=== PATIENT | female | born 1985 | race Caucasian/White ===

== ENCOUNTER 2017-08-05 03:42 | Emergency (ER) | payer SELFPAY ==
[2017-08-05 03:42] VITALS: BMI 28.0
[2017-08-05 04:41] LABS: BASO % 0.7 % (0.0-2.0); EOS # 0.1 K/uL (0.0-0.7); EOS % 1.8 % (0.0-4.0); LYMPH # 2.6 K/uL (1.0-4.3); LYMPH % 42.7 % (20.0-40.0); MEAN CELL VOLUME 91.9 fL (81.0-99.0); MEAN CORPUSCULAR HEMOGLOBIN 31.3 pg (27.0-31.0); MEAN CORPUSCULAR HGB CONC 34.1 g/dL (33.0-37.0); MEAN PLATELET VOLUME 7.4 fL (7.2-11.7); MONO # 0.5 K/uL (0.0-0.8); MONO % 8.4 % (0.0-10.0); NEUT # 2.8 K/uL (1.8-7.0); NEUT % 46.4 % (50.0-75.0); NRBC % 0.3 % (0.0-2.0); RBC 4.47 Mil/uL (3.80-5.20); RED CELL DISTRIBUTION WIDTH 13.1 % (11.5-14.5); WHITE BLOOD COUNT 6.1 K/uL (4.8-10.8)
[2017-08-05 04:46] LABS: HCG,QUALITATIVE URINE NEGATIVE (NEGATIVE)
[2017-08-05 04:47] LABS: SQUAMOUS EPITHIAL 11 /hpf (0-5); URINE BILIRUBIN NEGATIVE (NEGATIVE); URINE BLOOD NEGATIVE (NEGATIVE); URINE CLARITY Hazy (Clear); URINE COLOR Yellow (YELLOW); URINE GLUCOSE (UA) NORMAL (Normal); URINE HYALINE CAST 0-2 /lpf (0-2); URINE LEUKOCYTE ESTERASE 1+ Leu/uL (Negative); URINE PROTEIN NEGATIVE (NEGATIVE)
[2017-08-05 04:50] LABS: ALB/GLOB RATIO 1.4 (1.0-2.1); ALBUMIN 4.2 g/dL (3.5-5.0); ALT/SGPT 20 U/L (9-52); AST/SGOT 15 U/L (14-36); BLOOD UREA NITROGEN 12 mg/dL (7-17); GFR AFRICAN-AMERICAN > 60; GFR NON-AFRICAN AMERICAN > 60; LIPASE 51 U/L (23-300)
--- NOTE | 2017-08-05 06:20 | C.PDOC ---
History Of Present Illness 31 y/o female presents to the ED complaining of right rib pain since last night. States the pain is also radiating to her right upper back. Pain worsens with deep inspiration. Denies any fever, chills, abdominal pain, SOB, palpitations, or trauma. Time Seen by Provider: 08/05/17 04:12 Chief Complaint (Nursing): Abdominal Pain History Per: Patient History/Exam Limitations: no limitations Onset/Duration Of Symptoms: Hrs Current Symptoms Are (Timing): Still Present Past Medical History Reviewed: Historical Data, Nursing Documentation, Vital Signs Vital Signs: Last Vital Signs Temp 98.4 F 08/05/17 06:27 Pulse 68 08/05/17 06:27 Resp 16 08/05/17 06:27 BP 125/88 08/05/17 06:27 Pulse Ox 96 08/05/17 06:35 - Medical History PMH: Asthma, Gall Bladder Disease - [facility] Procedures APPLICATION OF SPLINT (04/11/14) Family History: States: Unknown Family Hx - Social History Hx Tobacco Use: Yes Hx Alcohol Use: No Hx Substance Use: No - Immunization History Hx Tetanus Toxoid Vaccination: No Hx Influenza Vaccination: Yes Hx Pneumococcal Vaccination: No Review Of Systems Constitutional: Negative for: Fever, Chills Cardiovascular: Positive for: Other (Right rib pain). Negative for: Palpitations Respiratory: Negative for: Shortness of Breath Gastrointestinal: Negative for: Abdominal Pain Musculoskeletal: Positive for: Back Pain Physical Exam - Physical Exam Appears: Non-toxic, No Acute Distress Skin: Normal Color, Warm, Dry Head: Atraumatic, Normacephalic Eye(s): bilateral: Normal Inspection, PERRL, EOMI Oral Mucosa: Moist Chest: No Deformity, Tenderness (to the right intercostal area), No Ecchymosis Cardiovascular: Rhythm Regular, No Murmur Respiratory: Normal Breath Sounds, No Accessory Muscle Use, No Rales, No Rhonchi , No Wheezing Gastrointestinal/Abdominal: Soft, No Tenderness (to right upper quadrant), No Guarding, No Rebound Back: No CVA Tenderness, Other (Tenderness to right supscapular area) Extremity: Bilateral: Atraumatic, Normal Color And Temperature, Normal ROM Pulses: Left Dorsalis Pedis: Normal, Right Dorsalis Pedis: Normal Neurological/Psych: Oriented x3, Normal Speech, Normal Motor, Normal Sensation, Other (No focal deficits) ED Course And Treatment - Laboratory Results Result Diagrams: 08/05/17 04:35 08/05/17 04:35 O2 Sat by Pulse Oximetry: 96 (RA) Pulse Ox Interpretation: Normal - Radiology CXR: Interpreted by Me CXR Interpretation: Yes: No Acute Disease. No: Infiltrates, Fracture Progress Note: Labs and CXR ordered. Patient given Toradol IM. Informed patient of negative CXR result. Labs reviewed, showing no clinically significant abnormalities. On reevaluation, patient is resting comfortably and reports improvement in pain. Patient is table for discharge home. Return precautions discussed Disposition Counseled Patient/Family Regarding: Diagnosis, Need For Followup, Rx Given - Disposition Disposition: HOME/ ROUTINE Disposition Time: :19 Condition: STABLE Additional Instructions: Take meds as directed Follw up with PMD Return to ER if worse Prescriptions: Cyclobenzaprine [Cyclobenzaprine HCl] 10 mg PO HS #7 tab Ibuprofen [Motrin] 600 mg PO Q6H #20 tab Instructions: Costochondritis (DC) Forms: [employer] ([place]ian) - POA Present On Arrival: None - Clinical Impression Clinical Impression: Costochondritis - PA / [employer] / Resident Statement MD/DO has reviewed & agrees with the documentation as recorded. - Scribe Statement The provider has reviewed the documentation as recorded by the Scribe (Leigh Hoang) All medical record entries made by the Scribe were at my direction and personally dictated by me. I have reviewed the chart and agree that the record accurately reflects my personal performance of the history, physical exam, medical decision making, and the department course for this patient. I have also personally directed, reviewed, and agree with the discharge instructions and disposition.
[2017-08-05 06:29] VITALS: BP 125/88; PULSE 68; RESP 16; TEMP 98.4
[2017-08-05 06:31] VITALS: O2SAT 96
--- NOTE | 2017-08-05 08:31 | RAD ---
HISTORY: pain, right chest pain COMPARISON: 09/06/2013 TECHNIQUE: Chest PA and lateral FINDINGS: LUNGS: No active pulmonary disease. PLEURA: No significant pleural effusion identified. No pneumothorax apparent. CARDIOVASCULAR: Normal. OSSEOUS STRUCTURES: No significant abnormalities. VISUALIZED UPPER ABDOMEN: Normal. OTHER FINDINGS: None. IMPRESSION: No active disease.
== END 2017-08-05 06:35 | disposition home or self-care (01) ==
LOC: C.ER 03:42
DX: M94.0 Chondrocostal junction syndrome [Tietze] (principal); Z72.0 Tobacco use
CPT/HCPCS: 71046; 80053; 81001; 83690; 84703; 85025; 96374; 99284; J1885

== ENCOUNTER 2017-10-05 05:50 | Emergency (ER) | payer SELFPAY ==
[2017-10-05 05:51] VITALS: BMI 28.0
[2017-10-05 06:00] VITALS: RESP 16; TEMP 98.3; O2SAT 97
[2017-10-05] MEDS ORDERED: Tetanus/Diphtheria Toxoids 0.5 ml Syringe IM ONE ×2 (06:06→06:20)
--- NOTE | 2017-10-05 06:27 | C.PDOC ---
History Of Present Illness 31 year old female patient presents to the ER with c/o laceration on right hand. Patient states she cut her hand from a broken glass. Patient notes her tetanus shot is not UTD. Patient denies weakness/numbness. Time Seen by Provider: 10/05/17 06:02 Chief Complaint (Nursing): Abnormal Skin Integrity History Per: Patient History/Exam Limitations: no limitations Onset/Duration Of Symptoms: Hrs Current Symptoms Are (Timing): Still Present Location Of Injury: Right: Hand Past Medical History Reviewed: Historical Data, Nursing Documentation, Vital Signs Vital Signs: Last Vital Signs Temp 98.3 F 10/05/17 05:55 Pulse 67 10/05/17 07:12 Resp 16 10/05/17 07:12 BP 123/82 10/05/17 07:12 Pulse Ox 97 10/05/17 07:12 - Medical History PMH: Asthma, Gall Bladder Disease - [facility] Procedures APPLICATION OF SPLINT (04/11/14) Family History: States: Unknown Family Hx - Social History Hx Tobacco Use: Yes Hx Alcohol Use: No Hx Substance Use: No - Immunization History Hx Tetanus Toxoid Vaccination: No Hx Influenza Vaccination: Yes Hx Pneumococcal Vaccination: No Review Of Systems Except As Marked, All Systems Reviewed And Found Negative. Musculoskeletal: Positive for: Other (laceration on right hand) Neurological: Negative for: Weakness, Numbness Physical Exam - Physical Exam Appears: Well, Non-toxic, No Acute Distress Skin: Normal Color, Warm, Dry Head: Atraumatic Eye(s): bilateral: Normal Inspection Cardiovascular: Rhythm Regular Respiratory: Other (speaking in full sentences) Extremity: Normal ROM, Capillary Refill (< 2 sec), No Deformity, Other (3 cm laceration on palmar aspect of right hand from the hypothenar extending to IP jts 4th and 5th fingers; 1.5 cm very superficial laceration to lateral aspect of right thumb. no tendon injury. ) Extremity: Bilateral: Normal Color And Temperature, Normal ROM Pulses: Left Radial: Normal, Right Radial: Normal Neurological/Psych: Oriented x3, Normal Speech Gait: Steady ED Course And Treatment O2 Sat by Pulse Oximetry: 97 (RA) Pulse Ox Interpretation: Normal Progress Note: Impression: 3cm laceration on palmar aspect of right hand , 1.5 cm very superficial to right thumb. Plans: --Tetanus booster. -- right hand XR. Reassess: Patient is resting comfortably. Patient tolerated laceration repair well. No foreign body or deep structure involvment was detected. Entire laceration was closed with 4-O nylon sutures x 4 and dermabond applied to right thumb lac. Patient is instructed on wound care and is advised to f/u with PMD or ER in 1-2. Laceration - Laceration Repair palmar aspect of right hand Wound Length (In cm): 3 Description Of Wound: Linear Wound Cleansed With: Sterile Saline Anesthesia: Lidocaine 1% Wound Examination: Irrigated With Saline, No FB With Wound Exploration, No Tendon Injury With Wound Exploration Wound Closure: Suture (x 6) Suture Technique And Material Used: Nylon (4-O ) Wound Complexity: Simple (Pt tolerated well) Laceration , Rt thumb Wound Length (In cm): 2 cm Description Of Wound: Linear Wound Examination: Irrigated With Saline, No FB With Wound Exploration, No Tendon Injury With Wound Exploration Right thumb Wound Length (In cm): 1.5 Description Of Wound: Linear, Clean Wound Cleansed With: Sterile Saline Wound Examination: Irrigated With Saline, No FB With Wound Exploration, No Tendon Injury With Wound Exploration Wound Closure: Steri Strips (x 3), Skin Glue Wound Complexity: Simple (Pt tolerated well) Disposition Counseled Patient/Family Regarding: Diagnosis, Need For Followup - Disposition Referrals: Miah Sequeira MD [Staff Provider] - Disposition: HOME/ ROUTINE Disposition Time: 07:03 Condition: STABLE Additional Instructions: Keep wound clean and dry May wash sutures as directed and apply bacitracin oint Suture removal in 10 days Return to ER if worse Instructions: Laceration Repair With Glue (DC), Laceration Repair With Stitches (DC) Forms: [employer] ([place] Citizen), Work Excuse - Clinical Impression Clinical Impression: Hand laceration - 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 - Scribe Statement The provider has reviewed the documentation as recorded by the Alfreda Milton Do All medical record entries made by the Scribe were at my direction and personally dictated by me. I have reviewed the chart and agree that the record accurately reflects my personal performance of the history, physical exam, medical decision making, and the department course for this patient. I have also personally directed, reviewed, and agree with the discharge instructions and disposition.
[2017-10-05 07:14] VITALS: BP 123/82; PULSE 67
--- NOTE | 2017-10-05 11:24 | RAD ---
Right hand three views History: Laceration. Comparison: None available. Findings: On the oblique and lateral views, there is a punctate radiopaque density seen within the soft tissues at the radial aspect of the 2nd metacarpal head, nonspecific. Punctate small foreign body cannot entirely be excluded. Clinical correlation. Probable bone islands in the 4th and 5th metacarpal heads. Impression: On the oblique and lateral views, there is a punctate radiopaque density seen within the soft tissues at the radial aspect of the 2nd metacarpal head, nonspecific. Punctate small foreign body cannot entirely be excluded. Clinical correlation.
== END 2017-10-05 07:14 | disposition home or self-care (01) ==
LOC: C.ER 05:50
DX: S61.411A Laceration without foreign body of right hand, initial encounter (principal); W25.XXXA Contact with sharp glass, initial encounter; Y92.9 Unspecified place or not applicable; Z23 Encounter for immunization

== ENCOUNTER 2017-10-15 10:23 | Emergency (ER) | payer SELFPAY ==
[2017-10-15 10:23] VITALS: BMI 28.0
[2017-10-15 10:28] VITALS: BP 116/87; PULSE 77; RESP 18; TEMP 98.1; O2SAT 100
--- NOTE | 2017-10-15 11:02 | C.PDOC ---
History Of Present Illness 31 y/o female presents to the ED for suture removal. The (7) sutures were placed 10 days ago on left hand palm. The patient offers no medical complaints at this time. She states the healing process of the sutures went well. Time Seen by Provider: 10/15/17 10:29 Chief Complaint (Nursing): Suture/Staple Removal History Per: Patient History/Exam Limitations: no limitations Location Of Injury: Left: Head (palm) Recent travel outside of the [place]: No Past Medical History Reviewed: Historical Data, Nursing Documentation, Vital Signs Vital Signs: Last Vital Signs Temp 98.1 F 10/15/17 10:26 Pulse 77 10/15/17 10:26 Resp 18 10/15/17 10:26 BP 116/87 10/15/17 10:26 Pulse Ox 100 10/15/17 11:03 - Medical History PMH: Asthma, Gall Bladder Disease Other Surgeries: Gall Bladder stone removed - [facility] Procedures APPLICATION OF SPLINT (04/11/14) Family History: States: Unknown Family Hx - Social History Hx Tobacco Use: Yes Hx Alcohol Use: No Hx Substance Use: No - Immunization History Hx Tetanus Toxoid Vaccination: No Hx Influenza Vaccination: Yes Hx Pneumococcal Vaccination: No Review Of Systems Except As Marked, All Systems Reviewed And Found Negative. Constitutional: Negative for: Fever Musculoskeletal: Negative for: Hand Pain Neurological: Negative for: Weakness, Numbness Physical Exam - Physical Exam Appears: Non-toxic, No Acute Distress Skin: Normal Color, Warm, Dry Head: Atraumatic, Normacephalic Eye(s): bilateral: PERRL, EOMI Ear(s): Bilateral: Normal Oral Mucosa: Moist Extremity: Normal ROM Extremity: Bilateral: Normal Color And Temperature, Normal ROM Pulses: Left Radial: Normal, Right Radial: Normal Neurological/Psych: Oriented x3, Normal Speech ED Course And Treatment O2 Sat by Pulse Oximetry: 100 (RA) Pulse Ox Interpretation: Normal Medical Decision Making Medical Decision Makin sutures were removed. The stitches were noted to be dry and intact. Disposition - Disposition Referrals: Shwetha Cuevas, [Non-Staff] - Disposition: HOME/ ROUTINE Disposition Time: 10:30 Condition: GOOD Additional Instructions: NAIN PROCTOR, thank you for letting us take care of you today. Your provider was Zia Mcarthur DO and you were treated for WOUND CHECK. The emergency medical care you received today was directed at your acute symptoms. If you were prescribed any medication, please fill it and take as directed. It may take several days for your symptoms to resolve. Return to the Emergency Department if your symptoms worsen, do not improve, or if you have any other problems. Please contact your doctor or call one of the physicians/clinics you have been referred to that are listed on the Patient Visit Information form that is included in your discharge packet. Bring any paperwork you were given at discharge with you along with any medications you are taking to your follow up visit. Our treatment cannot replace ongoing medical care by a primary care provider outside of the emergency department. Thank you for allowing the [facility] team to be part of your care today. Keep clean and dry until fully healed. Follow up with your primary care doctor if you have any concerns. 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 - Scribe Statement The provider has reviewed the documentation as recorded by the Scribe (Lori Saavedar) Provider Attestation: All medical record entries made by the Scribe were at my direction and personally dictated by me. I have reviewed the chart and agree that the record accurately reflects my personal performance of the history, physical exam, medical decision making, and the department course for this patient. I have also personally directed, reviewed, and agree with the discharge instructions and disposition.
== END 2017-10-15 10:46 | disposition home or self-care (01) ==
LOC: C.ER 10:23
DX: Z48.02 Encounter for removal of sutures (principal); Z72.0 Tobacco use